=== PATIENT | female | born 1965 | race Caucasian/White ===

== ENCOUNTER 2017-03-17 07:59 | Day surgery (SDC) | payer BC ==
[~2017-03-17 07:59] MED LIST: Bupivacaine 0.25% 10 ML SDV ONE; Clindamycin Phosphate in D5W 900 MG in Premix Bag 1 BAG IV SCH; Fluorescein 5 ML Vial ONE; Lactated Ringers 1,000 ML IV SCH; Levofloxacin/Dextrose 5%-Water 500 MG in Premix Bag 1 BAG IV ONE; Sodium Chloride 0.9% 10 ML Syringe FLUSH PRN; Sodium Chloride 0.9% 2.5 ML Syringe FLUSH PRN
[2017-03-17] MEDS ORDERED: Clindamycin Phosphate in D5W 900 MG in Premix Bag 1 BAG IV ONE ×2 (08:15)
--- NOTE | 2017-03-17 08:58 | PCM.PREANE ---
Preanesthetic Assessment - Anesthesia/Transfusion/Family Hx Anesthesia History: Prior Anesthesia Without Reaction Family History of Anesthesia Reaction: No Transfusion History: No Prior Transfusion(s) Intubation History: Unknown - Review of Systems General: No Symptoms Pulmonary: No Symptoms Cardiovascular: No Symptoms Gastrointestinal: No symptoms Neurological: No Symptoms Other: Reports: None - Physical Assessment O2 Sat by Pulse Oximetry: 100 Respiratory Rate: 16 Vital Signs: Last Vital Signs Temp 37.0 C 03/17/17 08:44 Pulse 74 03/17/17 08:44 Resp 16 03/17/17 08:44 BP 144/72 H 03/17/17 08:44 Pulse Ox 100 03/17/17 08:44 Height: 1.68 m Weight: 69.853 kg ASA Class: 2 Mental Status: Alert & Oriented x3 Airway Class: Mallampati = 2 Dentition: Reports: [place](s) (multiple up front), Implants (x1 up front) Thyro-Mental Finger Breadths: 3 Mouth Opening Finger Breadths: 2 ROM/Head Extension: Full Lungs: Clear to auscultation, Normal respiratory effort Cardiovascular: Regular Rate, Regular Rhythm - Allergies Allergies/Adverse Reactions: Allergies Allergy/AdvReac Type Severity Reaction Status Date / Time Penicillins Allergy Cannot Verified 03/27/14 10:12 Remember - Blood Blood Available: No - Anesthesia Plan Pre-Op Medication Ordered: None - Acknowledgements Anesthesia Type Planned: General Anesthesia Pt an Appropriate Candidate for the Planned Anesthesia: Yes Alternatives and Risks of Anesthesia Discussed w Pt/Guardian: Yes Pt/Guardian Understands and Agrees with Anesthesia Plan: Yes PreAnesthesia Questionnaire HEENT History: Reports: Other (See Below) Other HEENT History: wears glasses Cardiovascular History: Reports: Other (See Below) (varicose veins) Genitourinary History: Reports: Other (See Below) (h/o bladder infection) [facility] History: Reports: , Other (See Below) (h/o ovarian cyst) Musculoskeletal History: Reports: Back Pain, Chronic Neurological History: Reports: Migraines, Other (See Below) Other Neuro History: Sciatica with cortisone injections Psychiatric History: Reports: Depression Oncologic (Cancer) History: Reports: Breast (h/o early left breast cancer treated with lumpectomy and tamoxifen for five years) - Past Surgical History Head Surgeries/Procedures: Reports: None GI Surgical History: Reports: Hernia, Abdominal (umbilical) Female Surgical History: Reports: Breast Biopsy (left breast lumpectomy), Cervical Cryotherapy, D&C - SUBSTANCE USE Smoking Status *Q: Never Smoker Recreational Drug Use History: No - HOME MEDS Home Medications: Home Meds Fluticasone Propionate [Flonase Allergy Relief] 1 spray NASBOTH DAILY 03/12/17 [ History] Venlafaxine [Effexor XR] 75 mg PO DAILY 03/12/17 [History] cloNIDine HCl [Catapres] 0.1 mg PO DAILY 03/12/17 [History] Ibuprofen 3 - 4 tab PO ASDIRECTED PRN 03/16/17 [History] - CURRENT (IN HOUSE) MEDS Current Meds: Current Medications Lactated Ringer's (Ringers, Lactated) 1,000 mls @ 125 mls/hr IV ASDIRECTED JOSE L Last Admin: 03/17/17 08:50 Dose: 125 mls/hr Sodium Chloride (Saline Flush) 10 ml FLUSH ASDIRECTED PRN PRN Reason: Keep Vein Open Sodium Chloride (Saline Flush) 2.5 ml FLUSH ASDIRECTED PRN PRN Reason: Keep Vein Open Discontinued Medications Bupivacaine HCl (Sensorcaine-Mpf 0.25%) Confirm Administered Dose 20 ml .ROUTE .STK-MED ONE Stop: 03/17/17 07:26 Fluorescein Sodium (Ak-Fluor) Confirm Administered Dose 5 ml .ROUTE .STK-MED ONE Stop: 03/17/17 07:26 Clindamycin Phosphate 900 mg/ (Premix) 50 mls @ 100 mls/hr IV ONETIME [facility] Levofloxacin/Dextrose 500 mg/ (Premix) 100 mls @ 100 mls/hr IV ONETIME ONE Stop: 03/17/17 07:59 Last Admin: 03/17/17 08:52 Dose: 100 mls/hr Clindamycin Phosphate 900 mg/ (Premix) 50 mls @ 100 mls/hr IV ONETIME ONE Stop: 03/17/17 08:44 Last Admin: 03/17/17 08:37 Dose: 100 mls/hr
[2017-03-17 09:10] LABS: CHLORIDE,CL 106 mmol/L (98-110); SODIUM,NA 141 mmol/L (136-146)
[2017-03-17] MEDS ORDERED: Lidocaine 2% 5 ML SDV ONE (09:15)
[2017-03-17] MEDS ORDERED: Rocuronium 10 MG/ML 10 ML Syringe ONE (09:15)
[2017-03-17] MEDS ORDERED: fentaNYL 250 MCG/5 ML SDV ONE (09:15)
[2017-03-17] MEDS ORDERED: Propofol 200 MG/20 ML SDV ONE (09:15)
[2017-03-17] MEDS ORDERED: Midazolam 1 MG/ML 2 ML SDV ONE (09:15)
[2017-03-17] MEDS ORDERED: Ondansetron 4 MG/2 ML SDV ONE (09:15)
[2017-03-17] MEDS ORDERED: HYDROmorphone 2 MG/ML Syringe ONE ×2 (12:01→12:31)
[2017-03-17] MEDS ORDERED: Mineral Oil/Petrolatum Ophth Oint 3.5 GM Tube ONE (12:02)
[2017-03-17] MEDS ORDERED: Dexamethasone 4 MG/ML 5 ML MDV ONE (12:13)
[2017-03-17] MEDS ORDERED: diphenhydrAMINE 50 MG/ML SDV ONE (12:13)
[2017-03-17] MEDS ORDERED: Labetalol 5 MG/ML 5 ML Syringe ONE (12:35)
[2017-03-17] MEDS ORDERED: Furosemide 40 MG/4 ML VIAL ONE (13:53)
[2017-03-17] MEDS ORDERED: fentaNYL 100 MCG/2 ML SDV ONE (13:53)
[2017-03-17] MEDS ORDERED: Ketorolac 30 MG/ML SDV ONE (14:45)
[2017-03-17] MEDS ORDERED: Neostigmine Methylsulfate 1 MG/ML 5 ML Syringe ONE (14:46)
[2017-03-17] MEDS ORDERED: Ketorolac 30 MG/ML SDV IVPUSH ONE (15:04)
[2017-03-17] MEDS ORDERED: Promethazine 25 MG/ML SDV IM PRN (15:04)
[2017-03-17] MEDS ORDERED: Acetaminophen/oxyCODONE 325-5 MG Tab PO PRN (15:04)
[2017-03-17] MEDS ORDERED: Morphine 2 MG/ML Syringe IVPUSH PRN (15:04)
[2017-03-17] MEDS ORDERED: Ondansetron 4 MG/2 ML SDV IVPUSH PRN (15:04)
[2017-03-17] MEDS ORDERED: Morphine 4 MG/ML Syringe IVPUSH PRN (15:04)
--- NOTE | 2017-03-17 15:11 | PCM.OPNOTE ---
- General Post-Op/Procedure Note Date of Surgery/Procedure: 03/17/17 Operative Procedure(s): Laparoscopic assissted vaginal hysterectomy, bilateral salpingoophrectomy and cystoscopy Findings: Bulky uterus, normal appearing tubes and ovaries. No bladder injury, copious efflux of dye from the both ureteric orifices Pre Op Diagnosis: Excessive bleeding in irregular cycles Post-Op Diagnosis: Same Anesthesia Technique: General ET tube Primary Surgeon: Paulette Peguero Valving Machine Operator: Samantha Weller Pathology: Uterus, cervix, tubes and ovaries Fluid Replacement, Intraop: 3,500 Output, Urine Amount: 480 EBL in mLs: 500 Complications: None Condition: Good
[2017-03-17] MEDS: fentaNYL 100 MCG/2 ML SDV IVPUSH PRN ×2 (15:25→15:30)
[2017-03-17] MEDS: Lactated Ringers 1,000 ML IV SCH ×2 (16:15→23:23)
--- NOTE | 2017-03-17 16:44 | PCM.POSTAN ---
POST ANESTHESIA ASSESSMENT - MENTAL STATUS Mental Status: alert, oriented - RESPIRATORY Respiratory Status: respiratory rate WNL, airway patent - CARDIOVASCULAR CV Status: pulse rate WNL, blood pressure stable - GASTROINTESTINAL GI Status: no symptoms - POST OP HYDRATION Hydration Status: adequate & stable
--- NOTE | 2017-03-17 19:02 | PCM.SURGPN ---
- General Info Date of Service: 03/17/17 POD#: 0 Functional Status: Reports: pain controlled, tolerating diet, incentive spirometry - Review of Systems General: Reports: Fatigue. Denies: Fever, Weakness, Malaise Pulmonary: Denies: shortness of breath, pleuritic chest pain Cardiovascular: Denies: Chest Pain, Palpitations Gastrointestinal: Denies: Abdominal pain Genitourinary: Denies: flank pain Psychiatric: Denies: mood lability, anxiety - Patient Data Vitals - most recent: Last Vital Signs Temp 36.6 C 03/17/17 18:44 Pulse 68 03/17/17 18:44 Resp 16 03/17/17 18:44 BP 148/78 H 03/17/17 18:44 Pulse Ox 96 03/17/17 18:44 Weight - most recent: 154 lb I&O - last 24 hours: Intake & Output 03/17/17 03/17/17 03/17/17 06:59 14:59 22:59 Intake Total 7200 Output Total 480 1210 Balance -480 5990 Lab Results last 24 hrs: Laboratory Results - last 24 hr 03/17/17 03/17/17 03/17/17 Range/Units 08:20 08:20 08:20 WBC 7.68 (4.0-11.0) K/uL RBC 4.29 L (4.30-5.90) M/uL Hgb 12.6 (12.0-16.0) g/dL Hct 38.2 (36.0-46.0) % MCV 89.0 (80.0-98.0) fL MCH 29.4 (27.0-32.0) pg MCHC 33.0 (31.0-37.0) g/dL RDW Std Deviation 40.2 (28.0-62.0) fl RDW Coeff of Yodit 13 (11.0-15.0) % Plt Count 187 (150-400) K/uL MPV 12.00 (7.40-12.00) fL Nucleated RBC % 0.0 /100WBC Nucleated RBCs # 0 K/uL Sodium 141 (136-146) mmol/L Potassium 3.8 (3.5-5.1) mmol/L Chloride 106 (98-110) mmol/L Carbon Dioxide 24 (21-31) mmol/L BUN 12 (6.0-23.0) mg/dL Creatinine 0.8 (0.6-1.5) mg/dL Est Cr Clr Drug Dosing 78.76 mL/min Estimated GFR (MDRD) > 60.0 ml/min Glucose 89 (60-110) mg/dL Calcium 9.3 (8.8-10.8) mg/dL HCG, Qual NEGATIVE (NEG) Blood Type Antibody Screen 03/17/17 Range/Units 08:20 WBC (4.0-11.0) K/uL RBC (4.30-5.90) M/uL Hgb (12.0-16.0) g/dL Hct (36.0-46.0) % MCV (80.0-98.0) fL MCH (27.0-32.0) pg MCHC (31.0-37.0) g/dL RDW Std Deviation (28.0-62.0) fl RDW Coeff of Yodit (11.0-15.0) % Plt Count (150-400) K/uL MPV (7.40-12.00) fL Nucleated RBC % /100WBC Nucleated RBCs # K/uL Sodium (136-146) mmol/L Potassium (3.5-5.1) mmol/L Chloride (98-110) mmol/L Carbon Dioxide (21-31) mmol/L BUN (6.0-23.0) mg/dL Creatinine (0.6-1.5) mg/dL Est Cr Clr Drug Dosing mL/min Estimated GFR (MDRD) ml/min Glucose (60-110) mg/dL Calcium (8.8-10.8) mg/dL HCG, Qual (NEG) Blood Type A POSITIVE Antibody Screen NEGATIVE Med Orders - Current: Current Medications Lactated Ringer's (Ringers, Lactated) 1,000 mls @ 125 mls/hr IV ASDIRECTED JOSE L Last Admin: 03/17/17 16:15 Dose: 125 mls/hr Ketorolac Tromethamine (Toradol) 30 mg IVPUSH Q6H PRN PRN Reason: Pain (severe 7-10) Stop: 03/22/17 15:05 Morphine Sulfate (Morphine) 2 mg IVPUSH Q2H PRN PRN Reason: Pain (severe 7-10) Morphine Sulfate (Morphine) 4 mg IVPUSH Q2H PRN PRN Reason: Pain (severe 7-10) Ondansetron HCl (Zofran) 4 mg IVPUSH Q6H PRN PRN Reason: Nausea/Vomiting Oxycodone/Acetaminophen (Percocet 325-5 Mg) 1 tab PO Q4H PRN PRN Reason: Pain (moderate 4-6) Oxycodone/Acetaminophen (Percocet 325-5 Mg) 2 tab PO Q4H PRN PRN Reason: Pain (moderate 4-6) Promethazine HCl (Phenergan) 25 mg IM Q6H PRN PRN Reason: Nausea/Vomiting Discontinued Medications Bupivacaine HCl (Sensorcaine-Mpf 0.25%) Confirm Administered Dose 20 ml .ROUTE .STK-MED ONE Stop: 03/17/17 07:26 Dexamethasone (Dexamethasone) Confirm Administered Dose 20 mg .ROUTE .STK-MED ONE Stop: 03/17/17 12:14 Diphenhydramine HCl (Benadryl) Confirm Administered Dose 50 mg .ROUTE .STK-MED ONE Stop: 03/17/17 12:14 Fentanyl (Sublimaze) Confirm Administered Dose 250 mcg .ROUTE .STK-MED ONE Stop: 03/17/17 09:16 Fentanyl (Sublimaze) 50 mcg IVPUSH .Q5MIN PRN PRN Reason: Pain Stop: 03/21/17 13:04 Last Admin: 03/17/17 15:30 Dose: 50 mcg Fentanyl (Sublimaze) Confirm Administered Dose 100 mcg .ROUTE .STK-MED ONE Stop: 03/17/17 13:54 Fluorescein Sodium (Ak-Fluor) Confirm Administered Dose 5 ml .ROUTE .STK-MED ONE Stop: 03/17/17 07:26 Furosemide (Lasix) Confirm Administered Dose 40 mg .ROUTE .STK-MED ONE Stop: 03/17/17 13:54 Glycopyrrolate () Confirm Administered Dose 1 mg .ROUTE .STK-MED ONE Stop: 03/17/17 14:47 Hydromorphone HCl (Dilaudid) Confirm Administered Dose 2 mg .ROUTE .STK-MED ONE Stop: 03/17/17 12:02 Hydromorphone HCl (Dilaudid) Confirm Administered Dose 2 mg .ROUTE .STK-MED ONE Stop: 03/17/17 12:32 Clindamycin Phosphate 900 mg/ (Premix) 50 mls @ 100 mls/hr IV ONETIME JOSE L Lactated Ringer's (Ringers, Lactated) 1,000 mls @ 125 mls/hr IV ASDIRECTED JOSE L Last Admin: 03/17/17 08:50 Dose: 125 mls/hr Levofloxacin/Dextrose 500 mg/ (Premix) 100 mls @ 100 mls/hr IV ONETIME ONE Stop: 03/17/17 07:59 Last Admin: 03/17/17 08:52 Dose: 100 mls/hr Clindamycin Phosphate 900 mg/ (Premix) 50 mls @ 100 mls/hr IV ONETIME ONE Stop: 03/17/17 08:44 Last Admin: 03/17/17 08:37 Dose: 100 mls/hr Ketorolac Tromethamine (Toradol) Confirm Administered Dose 30 mg .ROUTE .STK- MED ONE Stop: 03/17/17 14:46 Ketorolac Tromethamine (Toradol) 30 mg IVPUSH ONETIME ONE Stop: 03/17/17 15:05 Last Admin: 03/17/17 16:57 Dose: Not Given Labetalol HCl (Normodyne) Confirm Administered Dose 25 mg .ROUTE .STK-MED ONE Stop: 03/17/17 12:36 Lidocaine (Xylocaine-Mpf 2%) Confirm Administered Dose 5 ml .ROUTE .STK-MED ONE Stop: 03/17/17 09:16 Midazolam HCl (Versed 1 Mg/Ml) Confirm Administered Dose 2 mg .ROUTE .STK-MED ONE Stop: 03/17/17 09:16 Mineral Oil/White Petrolatum (Lacri-Lube S.O.P Oint) Confirm Administered Dose 3.5 gm .ROUTE .STK-MED ONE Stop: 03/17/17 12:03 Neostigmine Methylsulfate (Neostigmine) Confirm Administered Dose 5 mg .ROUTE .STK-MED ONE Stop: 03/17/17 14:47 Ondansetron HCl (Zofran) Confirm Administered Dose 4 mg .ROUTE .STK-MED ONE Stop: 03/17/17 09:16 Propofol (Diprivan 20 Ml) Confirm Administered Dose 200 mg .ROUTE .STK-MED ONE Stop: 03/17/17 09:16 Rocuronium [place] (Zemuron) Confirm Administered Dose 100 mg .ROUTE .STK-MED ONE Stop: 03/17/17 09:16 Sodium Chloride (Saline Flush) 10 ml FLUSH ASDIRECTED PRN PRN Reason: Keep Vein Open Sodium Chloride (Saline Flush) 2.5 ml FLUSH ASDIRECTED PRN PRN Reason: Keep Vein Open - Exam Wound/Incisions: dressing dry and intact General: alert, oriented Lungs: Clear to auscultation, Normal respiratory effort Cardiovascular: Regular Rate, Regular Rhythm Abdomen: bowel sounds present, soft, no tenderness, no distension Extremities: no edema, no calf tenderness Psy/Mental Status: alert, normal affect, normal mood - Problem List & Annotations (1) S/P laparoscopic assisted vaginal hysterectomy (LAVH) SNOMED Code(s): 709132110, 34792848, 758398270 Code(s): Z90.710 - ACQUIRED ABSENCE OF BOTH CERVIX AND UTERUS Status: Acute Current Visit: Yes (2) S/P bilateral salpingo-oophorectomy SNOMED Code(s): 928398373, 648650699 Code(s): Z90.722 - ACQUIRED ABSENCE OF OVARIES, BILATERAL Status: Acute Current Visit: Yes - Problem List Review Problem List Initiated/Reviewed/Updated: Yes - My Orders Last 24 Hours: Active Orders 24 hr Category Date Time Status Antiembolic Devices [RC] PER UNIT ROUTINE Care 03/17/17 05:00 Inactive Antiembolic Devices [RC] PER UNIT ROUTINE Care 03/17/17 15:05 Active Intake and Output [RC] PER UNIT ROUTINE Care 03/17/17 15:05 Active May Shower [RC] ASDIRECTED Care 03/17/17 15:04 Active Notify Provider Intake and Out [RC] ASDIRECTED Care 03/17/17 15:05 Active Notify Provider Vital Signs [RC] ASDIRECTED Care 03/17/17 15:05 Active Procedure Prep Instructions [RC] PER UNIT ROUTINE Care 03/17/17 05:00 Inactive Procedure Site Prep Instruct [RC] PER UNIT ROUTINE Care 03/17/17 05:00 Inactive RT Incentive Spirometry [RC] Q2HWA Care 03/17/17 15:05 Active Up With Assistance [RC] PER UNIT ROUTINE Care 03/17/17 15:05 Active Up ad Kari [RC] PER UNIT ROUTINE Care 03/17/17 15:05 Active Urinary Catheter Removal [RC] Per Unit Routine Care 03/17/17 15:05 Active Verify Patient Consent Obtain [RC] PER UNIT ROUTINE Care 03/17/17 05:00 Inactive Vital Signs [RC] PER UNIT ROUTINE Care 03/17/17 05:00 Inactive Vital Signs [RC] PER UNIT ROUTINE Care 03/17/17 15:05 Active Regular Diet [DIET] Diet 03/17/17 Dinner Active BASIC METABOLIC PANEL,BMP [CHEM] AM Lab 03/18/17 15:15 Ordered CBC WITH AUTO DIFF [HEME] AM Lab 03/18/17 05:11 Ordered Acetaminophen/oxyCODONE [Percocet 325-5 MG] Med 03/17/17 15:04 Active 1 tab PO Q4H PRN Acetaminophen/oxyCODONE [Percocet 325-5 MG] Med 03/17/17 15:04 Active 2 tab PO Q4H PRN Ketorolac [Toradol] Med 03/17/17 15:04 Active 30 mg IVPUSH Q6H PRN Lactated Ringers [Ringers, Lactated] 1,000 ml Med 03/17/17 15:15 Active IV ASDIRECTED Morphine Med 03/17/17 15:04 Active 2 mg IVPUSH Q2H PRN Morphine Med 03/17/17 15:04 Active 4 mg IVPUSH Q2H PRN Ondansetron [Zofran] Med 03/17/17 15:04 Active 4 mg IVPUSH Q6H PRN Promethazine [Phenergan] Med 03/17/17 15:04 Active 25 mg IM Q6H PRN Peripheral IV Discontinue [OM.PC] Routine Oth 03/17/17 15:05 Ordered Sequential Compression Device [OM.PC] Per Unit Routine Oth 03/17/17 15:05 Ordered Resuscitation Status Routine Resus Stat 03/17/17 15:04 Ordered Medication Orders Lactated Ringer's (Ringers, Lactated) 1,000 mls @ 125 mls/hr IV ASDIRECTED JOSE L Last Admin: 03/17/17 16:15 Dose: 125 mls/hr Ketorolac Tromethamine (Toradol) 30 mg IVPUSH Q6H PRN PRN Reason: Pain (severe 7-10) Stop: 03/22/17 15:05 Morphine Sulfate (Morphine) 2 mg IVPUSH Q2H PRN PRN Reason: Pain (severe 7-10) Morphine Sulfate (Morphine) 4 mg IVPUSH Q2H PRN PRN Reason: Pain (severe 7-10) Ondansetron HCl (Zofran) 4 mg IVPUSH Q6H PRN PRN Reason: Nausea/Vomiting Oxycodone/Acetaminophen (Percocet 325-5 Mg) 1 tab PO Q4H PRN PRN Reason: Pain (moderate 4-6) Oxycodone/Acetaminophen (Percocet 325-5 Mg) 2 tab PO Q4H PRN PRN Reason: Pain (moderate 4-6) Promethazine HCl (Phenergan) 25 mg IM Q6H PRN PRN Reason: Nausea/Vomiting - Assessment Assessment (Free Text/Narrative):: POD#0 s/p LAVH + BSO, doing well. Adequate urine . - Plan Plan (Free Text/Narrative):: OOB tonight Aim for discharge in the am
[2017-03-17] MEDS: Acetaminophen/oxyCODONE 325-5 MG Tab PO PRN ×2 (19:30→23:23)
[2017-03-17] MEDS: Ketorolac 30 MG/ML SDV IVPUSH PRN (21:37)
--- NOTE | 2017-03-18 00:15 | OR ---
SURGEON: Paulette Peguero MD DATE OF PROCEDURE: 03/17/2017 ARCHITECT MARINE: Dr. Weller. PREOPERATIVE DIAGNOSIS: Menorrhagia. POSTOPERATIVE DIAGNOSES: Menorrhagia. PROCEDURES PERFORMED: 1. Laparoscopic assisted vaginal hysterectomy and bilateral salpingo- oophorectomy. 2. Cystoscopy. ANESTHESIA: General endotracheal. ESTIMATED BLOOD LOSS: 500 mL. FINDINGS: Bulky uterus,14 weeks size. Normal-appearing tubes, ovaries. Bilateral ureteral orifices showed copious flow of dye on cystoscopy with no evidence of trauma to the bladder mucosa. COMPLICATIONS: None. DISPOSITION: Stable to recovery. BRIEF HISTORY: The patient is a 51-year-old, who had been evaluated in the office on numerous occasions in the last 2 years for ongoing heavy bleeding with irregular cycles, with all evaluations so far negative. In the past, she had responded well to tranexamic acid. She had not been given any hormonal therapy due to the fact that she is 28 months status post tamoxifen for treatment of breast cancer. On the last evaluation 4 days ago , she presented with flooding and clots.Office endometrial biopsy was benign and ultrasound showed a bulky uterus. Management options were discussed yet again with her and she opted to go ahead with hysterectomy plus removal of her tubes and ovaries. Risks otherwise associated with the surgery including, but not limited to bleeding, infection, injury to bowel, bladder, blood vessels, ureters, and other organs were explained to her. Understanding these risks, she consented to proceed with the surgery. Appropriate consent was obtained. DESCRIPTION OF PROCEDURE: The patient was taken to the operating room, where induction of general anesthesia was performed. After adequate level of general anesthesia, she was placed in dorsal lithotomy position. The abdomen, perineum, and vagina were prepped and draped in the usual sterile fashion for laparoscopic vaginal surgery. A Siddiqi catheter was placed and backed filled with 40 mL of dilute methylene blue. She received clindamycin and levofloxacin for antibiotics prophylaxis (she has a penicillin allergy). Appropriate time-out was held. Bimanual examination revealed a mobile anteverted uterus approximately 14-week size. No adnexal masses were palpable. The bivalve speculum was placed in the vagina and anterior lip of the cervix was grasped with an Allis Clamp. The uterus was sounded to 8 cm and Zumi uterine manipulator was placed into the uterine cavity. The speculum and Allis clamp were removed. Audiovisual Librarian's gloves were changed. Attention was then turned to the abdomen. Due to the patient's prior abdominoplasty, left upper quadrant entry was performed after the stomach had been deflated with an OG tube inserted by Anesthesia. Two fingerbreadths below the left costal margin in the mid clavicular line, the area was infiltrated with 0.25% Marcaine and a 5-mm incision was made with a scalpel. The abdominal wall was elevated and a 5-mm trocar with 5 mm laparoscope was inserted into the peritoneal cavity under direct visualization. CO2 insufflation was commenced. The opening pressure was less than 6 mm, and then it was increased to high flow. An adequate pneumoperitoneum was achieved to a pressure of 13 mmHg. A panoramic survey view of the abdomen and the pelvis was performed. Two additional incisions were then made under direct visualization in the left and right lower quadrants approximately 2 cm medial and cephalad from the anterior superior iliac spine. The uterus was then elevated the pelvic organs were inspected with the aforementioned findings. The ureters were identified deep within the pelvis bilaterally. Using the 5-mm LigaSure device, the left infundibulopelvic ligament was identified, cauterized twice, and then was cut. All structures were sealed twice before they were cut. Continuing along the mesosalpinx, the left fallopian tube was cauterized and serially cut until the round ligament was reached. This was also cauterized and cut, and then the anterior lip of the broad ligament was then incised beginning to develop an adequate bladder flap. The uterine vessels were skeletonized, and then doubly cauterized and cut. This process was repeated on the opposite side, completing the bladder flap dissection immediately adjacent to the uterus. Once this was completed, the abdomen was desufflated and all the instruments except the ports were removed from the abdomen. Attention was then turned to the vaginal aspect of the procedure. A weighted speculum was placed posteriorly into the vagina. The bladder catheter was unclamped. Vaginal retractors were placed anteriorly and laterally, a Khoa tenaculum was used to grasp the anterior and posterior lips of the cervix after the Zumi manipulator had been removed. The cervix was then circumscribed using electrocautery. The vaginal mucosa was pushed away from the cervix. Posterior colpotomy was achieved without difficulty and Dina-Auvard speculum was placed posteriorly. Initially, it was difficult to perform an anterior colpotomy due to the length of the cervix, hence the uterosacral ligaments on either side were cross- clamped with Delvis clamps, cut, and suture ligated with a Delvis suture of 2-0 Polysorb. After this was performed, I was then able to reach the peritoneum and an anterior colpotomy was achieved by sharp dissection and blunt dissection with a finger palpating the previously-made dissection during laparoscopy. A vaginal retractor was then placed anteriorly pulling the bladder upwards. Additional pedicles were again encompassing the cardinal ligament complex were taken on both sides, these were suture ligated with Delvis suture of 2-0 Polysorb. Once this was achieved, the uterus was then delivered vaginally and passed off. The pedicles were evaluated and found to be hemostatic. The retained uterosacral ligament sutures were then ligated to the ipsilateral vaginal apices bilaterally. All pedicles were inspected and found to be completely hemostatic. The vaginal cuff was closed with running locked suture of 0 Polysorb. The catheter was removed from the bladder and the cystoscope was performed after intravenous fluorescein dye and furosemide had been given. There was copious flow of fluorescein yellow dye bilaterally from the ureteric orifices. No bladder trauma was noted. The catheter was then replaced. The vagina was again reinspected and found to be completely hemostatic. The linking machine operator's gloves were changed. Attention was then turned abdominally where the abdomen was re-insufflated. The pelvis was copiously irrigated and inspected. No bleeding was noted. The abdomen was then reinspected under 5 mmHg and was found to be completely hemostatic. The abdomen was then desufflated and all the ports were removed. The skin was closed with subcuticular sutures of 4-0 Monocryl. Final sponge, needle, and instrument counts were reported as correct. The patient was taken to the recovery room in stable condition. ADUMMAX / EARLENE /[id number] MIGDALIA
--- NOTE | 2017-03-18 01:08 | PCM48HPAN ---
Post Anesthesia Note - EVALUATION WITHIN 48HRS OF ANESTHETIC Vital Signs in Normal Range: Yes Patient Participated in Evaluation: Yes Respiratory Function Stable: Yes Airway Patent: Yes Cardiovascular Function Stable: Yes Hydration Status Stable: Yes Pain Control Satisfactory: Yes Nausea and Vomiting Control Satisfactory: Yes Mental Status Recovered: Yes
[2017-03-18] MEDS: Ketorolac 30 MG/ML SDV IVPUSH PRN (03:43)
[2017-03-18 05:48] LABS: CHLORIDE,CL 106 mmol/L (98-110); SODIUM,NA 138 mmol/L (136-146)
[2017-03-18 07:59] VITALS: BP 132/76
[2017-03-18] MEDS: Acetaminophen/oxyCODONE 325-5 MG Tab PO PRN (08:16)
--- NOTE | 2017-03-18 09:06 | PCM.SURGPN ---
- General Info Date of Service: 03/18/17 POD#: 1 Functional Status: Reports: pain controlled, tolerating diet, ambulating, urinating - Review of Systems General: Denies: Fever, Weakness, Fatigue, Malaise, Chills Pulmonary: Denies: shortness of breath, pleuritic chest pain Cardiovascular: Denies: Chest Pain, Palpitations, Dyspnea on Exertion Gastrointestinal: Denies: Abdominal pain, Nausea, Vomiting Genitourinary: Denies: dysuria, flank pain Psychiatric: Denies: depression, mood lability - Patient Data Vitals - most recent: Last Vital Signs Temp 36.2 C 03/18/17 07:33 Pulse 82 03/18/17 07:33 Resp 14 03/18/17 07:33 BP 132/76 03/18/17 07:33 Pulse Ox 95 03/18/17 07:33 Weight - most recent: 154 lb I&O - last 24 hours: Intake & Output 03/17/17 03/18/17 03/18/17 22:59 06:59 14:59 Intake Total 7200 Output Total 1210 1300 450 Balance 5990 -1300 -450 Lab Results last 24 hrs: Laboratory Results - last 24 hr 03/17/17 03/17/17 03/17/17 Range/Units 08:20 08:20 08:20 WBC (4.0-11.0) K/uL RBC (4.30-5.90) M/uL Hgb (12.0-16.0) g/dL Hct (36.0-46.0) % MCV (80.0-98.0) fL MCH (27.0-32.0) pg MCHC (31.0-37.0) g/dL RDW Std Deviation (28.0-62.0) fl RDW Coeff of Yodit (11.0-15.0) % Plt Count (150-400) K/uL MPV (7.40-12.00) fL Neut % (Auto) (48.0-80.0) % Lymph % (Auto) (16.0-40.0) % [place] % (Auto) (0.0-15.0) % Eos % (Auto) (0.0-7.0) % Baso % (Auto) (0.0-1.5) % Neut # (Auto) (1.4-5.7) K/uL Lymph # (Auto) (0.6-2.4) K/uL [place] # (Auto) (0.0-0.8) K/uL Eos # (Auto) (0.0-0.7) K/uL Baso # (Auto) (0.0-0.1) K/uL Nucleated RBC % /100WBC Nucleated RBCs # K/uL Sodium 141 (136-146) mmol/L Potassium 3.8 (3.5-5.1) mmol/L Chloride 106 (98-110) mmol/L Carbon Dioxide 24 (21-31) mmol/L BUN 12 (6.0-23.0) mg/dL Creatinine 0.8 (0.6-1.5) mg/dL Est Cr Clr Drug Dosing 78.76 mL/min Estimated GFR (MDRD) > 60.0 ml/min Glucose 89 (60-110) mg/dL Calcium 9.3 (8.8-10.8) mg/dL HCG, Qual NEGATIVE (NEG) Blood Type A POSITIVE Antibody Screen NEGATIVE 03/18/17 03/18/17 Range/Units 04:57 04:57 WBC 14.74 H (4.0-11.0) K/uL RBC 3.27 L (4.30-5.90) M/uL Hgb 9.8 L (12.0-16.0) g/dL Hct 29.3 L (36.0-46.0) % MCV 89.6 (80.0-98.0) fL MCH 30.0 (27.0-32.0) pg MCHC 33.4 (31.0-37.0) g/dL RDW Std Deviation 41.5 (28.0-62.0) fl RDW Coeff of Yodit 13 (11.0-15.0) % Plt Count 184 (150-400) K/uL MPV 12.00 (7.40-12.00) fL Neut % (Auto) 77.9 (48.0-80.0) % Lymph % (Auto) 9.3 L (16.0-40.0) % [place] % (Auto) 12.8 (0.0-15.0) % Eos % (Auto) 0.0 (0.0-7.0) % Baso % (Auto) 0.0 (0.0-1.5) % Neut # (Auto) 11.5 H (1.4-5.7) K/uL Lymph # (Auto) 1.4 (0.6-2.4) K/uL [place] # (Auto) 1.9 H (0.0-0.8) K/uL Eos # (Auto) 0.0 (0.0-0.7) K/uL Baso # (Auto) 0.0 (0.0-0.1) K/uL Nucleated RBC % 0.0 /100WBC Nucleated RBCs # 0 K/uL Sodium 138 (136-146) mmol/L Potassium 4.2 (3.5-5.1) mmol/L Chloride 106 (98-110) mmol/L Carbon Dioxide 23 (21-31) mmol/L BUN 8 (6.0-23.0) mg/dL Creatinine 0.7 (0.6-1.5) mg/dL Est Cr Clr Drug Dosing 90.01 mL/min Estimated GFR (MDRD) > 60.0 ml/min Glucose 144 H (60-110) mg/dL Calcium 8.6 L (8.8-10.8) mg/dL HCG, Qual (NEG) Blood Type Antibody Screen Med Orders - Current: Current Medications Lactated Ringer's (Ringers, Lactated) 1,000 mls @ 125 mls/hr IV ASDIRECTED [facility] Last Admin: 03/17/17 23:23 Dose: 125 mls/hr Ketorolac Tromethamine (Toradol) 30 mg IVPUSH Q6H PRN PRN Reason: Pain (severe 7-10) Stop: 03/22/17 15:05 Last Admin: 03/18/17 03:43 Dose: 30 mg Morphine Sulfate (Morphine) 2 mg IVPUSH Q2H PRN PRN Reason: Pain (severe 7-10) Last Admin: 03/17/17 19:30 Dose: 2 mg Morphine Sulfate (Morphine) 4 mg IVPUSH Q2H PRN PRN Reason: Pain (severe 7-10) Ondansetron HCl (Zofran) 4 mg IVPUSH Q6H PRN PRN Reason: Nausea/Vomiting Last Admin: 03/17/17 19:30 Dose: 4 mg Oxycodone/Acetaminophen (Percocet 325-5 Mg) 1 tab PO Q4H PRN PRN Reason: Pain (moderate 4-6) Last Admin: 03/18/17 03:43 Dose: 1 tab Oxycodone/Acetaminophen (Percocet 325-5 Mg) 2 tab PO Q4H PRN PRN Reason: Pain (moderate 4-6) Last Admin: 03/18/17 08:16 Dose: 2 tab Promethazine HCl (Phenergan) 25 mg IM Q6H PRN PRN Reason: Nausea/Vomiting Discontinued Medications Bupivacaine HCl (Sensorcaine-Mpf 0.25%) Confirm Administered Dose 20 ml .ROUTE .STK-MED ONE Stop: 03/17/17 07:26 Dexamethasone (Dexamethasone) Confirm Administered Dose 20 mg .ROUTE .STK-MED ONE Stop: 03/17/17 12:14 Diphenhydramine HCl (Benadryl) Confirm Administered Dose 50 mg .ROUTE .STK-MED ONE Stop: 03/17/17 12:14 Fentanyl (Sublimaze) Confirm Administered Dose 250 mcg .ROUTE .STK-MED ONE Stop: 03/17/17 09:16 Fentanyl (Sublimaze) 50 mcg IVPUSH .Q5MIN PRN PRN Reason: Pain Stop: 03/21/17 13:04 Last Admin: 03/17/17 15:30 Dose: 50 mcg Fentanyl (Sublimaze) Confirm Administered Dose 100 mcg .ROUTE .STK-MED ONE Stop: 03/17/17 13:54 Fluorescein Sodium (Ak-Fluor) Confirm Administered Dose 5 ml .ROUTE .STK-MED ONE Stop: 03/17/17 07:26 Furosemide (Lasix) Confirm Administered Dose 40 mg .ROUTE .STK-MED ONE Stop: 03/17/17 13:54 Glycopyrrolate () Confirm Administered Dose 1 mg .ROUTE .STK-MED ONE Stop: 03/17/17 14:47 Hydromorphone HCl (Dilaudid) Confirm Administered Dose 2 mg .ROUTE .STK-MED ONE Stop: 03/17/17 12:02 Hydromorphone HCl (Dilaudid) Confirm Administered Dose 2 mg .ROUTE .STK-MED ONE Stop: 03/17/17 12:32 Clindamycin Phosphate 900 mg/ (Premix) 50 mls @ 100 mls/hr IV ONETIME JOSE L Lactated Ringer's (Ringers, Lactated) 1,000 mls @ 125 mls/hr IV ASDIRECTED JOSE L Last Admin: 03/17/17 08:50 Dose: 125 mls/hr Levofloxacin/Dextrose 500 mg/ (Premix) 100 mls @ 100 mls/hr IV ONETIME ONE Stop: 03/17/17 07:59 Last Admin: 03/17/17 08:52 Dose: 100 mls/hr Clindamycin Phosphate 900 mg/ (Premix) 50 mls @ 100 mls/hr IV ONETIME ONE Stop: 03/17/17 08:44 Last Admin: 03/17/17 08:37 Dose: 100 mls/hr Ketorolac Tromethamine (Toradol) Confirm Administered Dose 30 mg .ROUTE .STK- MED ONE Stop: 03/17/17 14:46 Ketorolac Tromethamine (Toradol) 30 mg IVPUSH ONETIME ONE Stop: 03/17/17 15:05 Last Admin: 03/17/17 16:57 Dose: Not Given Labetalol HCl (Normodyne) Confirm Administered Dose 25 mg .ROUTE .STK-MED ONE Stop: 03/17/17 12:36 Lidocaine (Xylocaine-Mpf 2%) Confirm Administered Dose 5 ml .ROUTE .STK-MED ONE Stop: 03/17/17 09:16 Midazolam HCl (Versed 1 Mg/Ml) Confirm Administered Dose 2 mg .ROUTE .STK-MED ONE Stop: 03/17/17 09:16 Mineral Oil/White Petrolatum (Lacri-Lube S.O.P Oint) Confirm Administered Dose 3.5 gm .ROUTE .STK-MED ONE Stop: 03/17/17 12:03 Neostigmine Methylsulfate (Neostigmine) Confirm Administered Dose 5 mg .ROUTE .STK-MED ONE Stop: 03/17/17 14:47 Ondansetron HCl (Zofran) Confirm Administered Dose 4 mg .ROUTE .STK-MED ONE Stop: 03/17/17 09:16 Propofol (Diprivan 20 Ml) Confirm Administered Dose 200 mg .ROUTE .STK-MED ONE Stop: 03/17/17 09:16 Rocuronium Bartelso (Zemuron) Confirm Administered Dose 100 mg .ROUTE .STK-MED ONE Stop: 03/17/17 09:16 Sodium Chloride (Saline Flush) 10 ml FLUSH ASDIRECTED PRN PRN Reason: Keep Vein Open Sodium Chloride (Saline Flush) 2.5 ml FLUSH ASDIRECTED PRN PRN Reason: Keep Vein Open - Exam Wound/Incisions: healing well General: alert, oriented HEENT: Pupils equal Lungs: Clear to auscultation, Normal respiratory effort Cardiovascular: Regular Rate, Regular Rhythm Abdomen: bowel sounds present, soft, no tenderness, no distension Extremities: no edema Psy/Mental Status: alert, normal affect, normal mood - Problem List & Annotations (1) S/P laparoscopic assisted vaginal hysterectomy (LAVH) SNOMED Code(s): 899256070, 71636959, 494426791 Code(s): Z90.710 - ACQUIRED ABSENCE OF BOTH CERVIX AND UTERUS Status: Acute Current Visit: Yes (2) S/P bilateral salpingo-oophorectomy SNOMED Code(s): 370641044, 409112025 Code(s): Z90.722 - ACQUIRED ABSENCE OF OVARIES, BILATERAL Status: Acute Current Visit: Yes - Problem List Review Problem List Initiated/Reviewed/Updated: Yes - My Orders Last 24 Hours: Active Orders 24 hr Category Date Time Status Antiembolic Devices [RC] PER UNIT ROUTINE Care 03/17/17 15:05 Active Intake and Output [RC] PER UNIT ROUTINE Care 03/17/17 15:05 Active May Shower [RC] ASDIRECTED Care 03/17/17 15:04 Active Notify Provider Intake and Out [RC] ASDIRECTED Care 03/17/17 15:05 Active Notify Provider Vital Signs [RC] ASDIRECTED Care 03/17/17 15:05 Active RT Incentive Spirometry [RC] Q2HWA Care 03/17/17 15:05 Active Up With Assistance [RC] PER UNIT ROUTINE Care 03/17/17 15:05 Active Up ad Kari [RC] PER UNIT ROUTINE Care 03/17/17 15:05 Active Vital Signs [RC] PER UNIT ROUTINE Care 03/17/17 15:05 Active Regular Diet [DIET] Diet 03/17/17 Dinner Active Acetaminophen/oxyCODONE [Percocet 325-5 MG] Med 03/17/17 15:04 Active 1 tab PO Q4H PRN Acetaminophen/oxyCODONE [Percocet 325-5 MG] Med 03/17/17 15:04 Active 2 tab PO Q4H PRN Ketorolac [Toradol] Med 03/17/17 15:04 Active 30 mg IVPUSH Q6H PRN Lactated Ringers [Ringers, Lactated] 1,000 ml Med 03/17/17 15:15 Active IV ASDIRECTED Morphine Med 03/17/17 15:04 Active 2 mg IVPUSH Q2H PRN Morphine Med 03/17/17 15:04 Active 4 mg IVPUSH Q2H PRN Ondansetron [Zofran] Med 03/17/17 15:04 Active 4 mg IVPUSH Q6H PRN Promethazine [Phenergan] Med 03/17/17 15:04 Active 25 mg IM Q6H PRN Peripheral IV Discontinue [OM.PC] Routine Oth 03/17/17 15:05 Ordered Sequential Compression Device [OM.PC] Per Unit Routine Oth 03/17/17 15:05 Ordered Resuscitation Status Routine Resus Stat 03/17/17 15:04 Ordered Medication Orders Lactated Ringer's (Ringers, Lactated) 1,000 mls @ 125 mls/hr IV ASDIRECTED OJSE L Last Admin: 03/17/17 23:23 Dose: 125 mls/hr Infusion: 03/17/17 23:23 Dose: 125 mls/hr Admin: 03/17/17 16:15 Dose: 125 mls/hr Ketorolac Tromethamine (Toradol) 30 mg IVPUSH Q6H PRN PRN Reason: Pain (severe 7-10) Stop: 03/22/17 15:05 Last Admin: 03/18/17 03:43 Dose: 30 mg Admin: 03/17/17 21:37 Dose: 30 mg Morphine Sulfate (Morphine) 2 mg IVPUSH Q2H PRN PRN Reason: Pain (severe 7-10) Last Admin: 03/17/17 19:30 Dose: 2 mg Morphine Sulfate (Morphine) 4 mg IVPUSH Q2H PRN PRN Reason: Pain (severe 7-10) Ondansetron HCl (Zofran) 4 mg IVPUSH Q6H PRN PRN Reason: Nausea/Vomiting Last Admin: 03/17/17 19:30 Dose: 4 mg Oxycodone/Acetaminophen (Percocet 325-5 Mg) 1 tab PO Q4H PRN PRN Reason: Pain (moderate 4-6) Last Admin: 03/18/17 03:43 Dose: 1 tab Oxycodone/Acetaminophen (Percocet 325-5 Mg) 2 tab PO Q4H PRN PRN Reason: Pain (moderate 4-6) Last Admin: 03/18/17 08:16 Dose: 2 tab Admin: 03/17/17 23:23 Dose: 2 tab Admin: 03/17/17 19:30 Dose: 2 tab Promethazine HCl (Phenergan) 25 mg IM Q6H PRN PRN Reason: Nausea/Vomiting - Assessment Assessment (Free Text/Narrative):: POD#1 s/p LAVH + BSO for menorrhagia. Stable and afebrile Hgb 9.8g/l. Normal BMP - Plan Plan (Free Text/Narrative):: Patient may be discharged Discharge instructions reviewed. Bleeding and infection precautions reviewed. Nothing in the vagina for 6 weeks Lifting instructions reviewed. Prescription for percocet given Follow up in the clinic in 2 weeks
== END 2017-03-18 11:30 | disposition home or self-care (01) ==
LOC: MW.SDS 07:59 → MW.OB 17:24 → UNDOADMOB 17:24 → UNDODISOB 03-18 10:00 → MW.SDS 03-18 11:30
PROVIDERS: ATTEND Obstetrics & Gynecology
PROC: 0UT9FZZ Resection of Uterus, Via Natural or Artificial Opening With Percutaneous Endoscopic Assistance (ICD-10-PCS; principal; 2017-03-17)
PROC: 0UTC7ZZ Resection of Cervix, Via Natural or Artificial Opening (ICD-10-PCS; 2017-03-17)
PROC: 0UT2FZZ Resection of Bilateral Ovaries, Via Natural or Artificial Opening With Percutaneous Endoscopic Assistance (ICD-10-PCS; 2017-03-17)
PROC: 0UT7FZZ Resection of Bilateral Fallopian Tubes, Via Natural or Artificial Opening With Percutaneous Endoscopic Assistance (ICD-10-PCS; 2017-03-17)
DX: N80.0 Endometriosis of uterus (principal); N84.0 Polyp of corpus uteri; D25.2 Subserosal leiomyoma of uterus; N87.9 Dysplasia of cervix uteri, unspecified; N83.01 Follicular cyst of right ovary; N73.6 Female pelvic peritoneal adhesions (postinfective); N83.8 Other noninflammatory disorders of ovary, fallopian tube and broad ligament; F32.9 Major depressive disorder, single episode, unspecified; G43.909 Migraine, unspecified, not intractable, without status migrainosus; G89.29 Other chronic pain; M54.9 Dorsalgia, unspecified; Z85.3 Personal history of malignant neoplasm of breast; Z88.0 Allergy status to penicillin; Z79.51 Long term (current) use of inhaled steroids; Z79.899 Other long term (current) drug therapy; Z98.890 Other specified postprocedural states
CPT/HCPCS: 36415; 58554; 80048; 84703; 85025; 85027; 86850; 86900; 86901; 88307; A9270; J1100; J1170; J1200; J1885; J1940; J1956; J2250; J2270; J2405; J3010; J7120; 00944; J2704

== ENCOUNTER 2018-02-04 11:02 | Day surgery (SDC) | payer BC ==
[~2018-02-04 11:02] MED LIST changes: +Betamethasone Acetate/Betamethasone Sod Phosphate 30 MG/5 ML MDV ONE; -Bupivacaine 0.25% 10 ML SDV ONE; -Clindamycin Phosphate in D5W 900 MG in Premix Bag 1 BAG IV SCH; -Fluorescein 5 ML Vial ONE; +Iopamidol 408 MG/ML 50 ML SDV ONE; -Lactated Ringers 1,000 ML IV SCH; -Levofloxacin/Dextrose 5%-Water 500 MG in Premix Bag 1 BAG IV ONE; +Lidocaine 2% 5 ML SDV ONE; +Ropivacaine 0.5% 5 MG/ML 30 ML SDV ONE; -Sodium Chloride 0.9% 10 ML Syringe FLUSH PRN; -Sodium Chloride 0.9% 2.5 ML Syringe FLUSH PRN
--- NOTE | 2018-02-04 15:15 | OR ---
SURGEON: Shruthi Hobbs D.O. DATE OF PROCEDURE: 02/04/2018 OR STAFF PRESENT: 1. Rama Byrne RN. 2. Mila Chowdhury RN. 3. RT Dandre. WOUND CLASSIFICATION: I. PREOPERATIVE DIAGNOSES: 1. Cervical degenerative disk disease. 2. Cervical radiculopathy. 3. Cervical spondylosis. POSTOPERATIVE DIAGNOSES: 1. Cervical degenerative disk disease. 2. Cervical radiculopathy. 3. Cervical spondylosis. PROCEDURES PERFORMED: 1. Cervical epidural steroid injection at C7-T1. 2. Fluoroscopic guidance for needle placement. 3. Local with oral Valium for sedation. SCREENING QUESTIONS: The patient answered "No" to all of the following questions: 1. Are you allergic to iodine, Betadine or latex? 2. Do you have a bleeding disorder? 3. Are you on anti-inflammatories or blood thinners? 4. Do you have any current local or systemic infections? 5. Do you have any joint replacements, heart valve replacements or a pacemaker? DESCRIPTION OF THE PROCEDURE: The patient had the procedure thoroughly explained including risks, benefits and alternatives. Consent was signed in my clinic indicating understanding and willingness to proceed. The patient presented to [facility] and was escorted to the dressing room to disrobe and change into a hospital gown. Preoperative vital signs were taken and stable. The patient reported that Valium 10 milligrams was taken prior to the procedure. The patient was brought to the procedure room and placed in the prone position on the [facility] frame for the cervical epidural steroid injection. A pillow was placed under the legs for patient comfort. The back was prepped with ChloraPrep and sterilely draped. All personnel in the operating room were dressed in appropriate attire including surgical scrubs, head and shoe covers. This was to ensure sterility while in the treatment room. During the time fluoroscopy was in use. all personnel in the operating room wore lead singh with thyroid collars. Sterile technique was used during the procedure. Skeletal landmarks were identified under fluoroscopic guidance for the C7-T1 interspace. The skin overlying the area was anesthetized with 2 cubic centimeters of 2% Lidocaine with a sterile 27-gauge 1.5 inch needle. Likewise the deep tissues were infiltrated. There was no evidence of infection at the site of needle insertion. Then a 20-gauge 3.5 inch Tuohy epidural needle was advanced under fluoroscopic guidance with loss of resistance technique. The needle position was visualized in both AP and lateral views for the C7-T1 cervical epidural steroid injection. Needle position was verified, 0.2 cubic centimeters increments of IsoVue-200 contrast dye injected under live fluoroscopy through microbore tubing and seen to outline the cervical epidural space in AP and lateral views. There was negative aspiration of heme, CSF and no paresthesias were noted. Then 6 milligrams of Celestone was slowly injected. The needle was cleared prior to removal from the skin. No adverse reactions were noted. The patient tolerated the procedure well and was brought to the recovery room awake and in good condition. After a brief stay in the recovery room monitored by the nurse, the patient was discharged to home. The patient was given both oral and written discharge and followup instructions and will follow up in the clinic in two to three weeks. The patient voiced understanding including understanding of those signs and symptoms that would require emergency care and also knows how to contact the office if there are any problems or questions in the meantime. PREOPERATIVE PAIN: 8/10. POSTOPERATIVE PAIN: 0/10. PLAN: Followup in the Pain Clinic in 3 weeks. CHARLETTE / EARLENE /[id number]
== END 2018-02-04 13:12 | disposition home or self-care (01) ==
LOC: MW.SDS 11:02
PROVIDERS: ATTEND Anesthesiology
DX: G89.4 Chronic pain syndrome (principal); M50.13 Cervical disc disorder with radiculopathy, cervicothoracic region; M47.812 Spondylosis without myelopathy or radiculopathy, cervical region; J30.9 Allergic rhinitis, unspecified; M75.22 Bicipital tendinitis, left shoulder; M75.42 Impingement syndrome of left shoulder; Z88.0 Allergy status to penicillin; Z85.3 Personal history of malignant neoplasm of breast; Z79.899 Other long term (current) drug therapy
CPT/HCPCS: 62321; J0702; Q9966; J2795